=== PATIENT | male | born 1945 | race Caucasian/White ===

== ENCOUNTER 2024-01-23 13:00 | Emergency (ER) | payer MEDICARE ==
[~2024-01-23] VITALS: Ht 170.1 cm; Wt 85.7 kg
[2024-01-23] MEDS ORDERED: ROSUVASTATIN CA40 MG PO (13:26)
[2024-01-23] MEDS ORDERED: FAMOTIDINE40 MG PO (13:26)
[2024-01-23] MEDS ORDERED: FUROSEMIDE40 MG PO (13:26)
[2024-01-23] MEDS ORDERED: CARVEDILOL6.25 MG PO (13:26)
[2024-01-23] MEDS ORDERED: IRBESARTAN300 M1 PO (13:27)
[2024-01-23] MEDS ORDERED: OMEPRAZOLE40 MG PO (13:27)
[2024-01-23] MEDS ORDERED: VALTREX500 MG PO (13:28)
== END 2024-01-23 13:34 | disposition home or self-care (01) ==
LOC: ED 13:00
DX: B02.9 Zoster without complications (principal); Z88.8 Allergy status to other drugs, medicaments and biological substances; Z87.891 Personal history of nicotine dependence